=== PATIENT | female | born 1945 | race Two or more races ===

== ENCOUNTER 2019-01-07 19:41 | Emergency (ER) | payer MEDICARE, MEDICAID ==
[~2019-01-07] VITALS: Ht 170.2 cm; Wt 75.0 kg
[2019-01-07] MEDS ORDERED: LIDOCAINE 1%/EPI 1:100,000 10 ML VIAL IJ ONE (20:15)
[2019-01-07 20:53] LABS: EOSINOPHILS % 1.4 % (0.0-5.0); HEMATOCRIT. 39.7 % (36.0-48.0); HEMOGLOBIN. 13.3 g/dL (12.0-16.0); LYMPHOCYTES % 31.2 % (20.0-50.0); MEAN CORPUSCULAR HEMOGLOBIN 31.3 pg (28.0-32.0); MEAN CORPUSCULAR VOLUME 93.6 fL (81.0-99.0); NEUTROPHILS % 57.4 % (40.0-76.0); PLATELET 188 x1000/uL (130-400); RED BLOOD CELL COUNT 4.24 mill/uL (4.2-5.4)
[2019-01-07 20:57] LABS: CHLORIDE 102 mEq/L (98-107)
[2019-01-07 20:59] LABS: PROTHROMBIN TIME 10.5 sec (9.1-11.1)
[2019-01-07] MEDS ORDERED: ACETAMINOPHEN 325MG TABLET PO ONE (22:45)
[2019-01-07] MEDS ORDERED: TRANEXAMIC ACID 1,000 MG/10 ML IV ONE (23:00)
[2019-01-08] MEDS ORDERED: DIPHENHYDRAMINE 50MG/ML VIAL IV PRN (02:30)
[2019-01-08] MEDS ORDERED: HYDROCODONE/ACETAMINOPHEN 5/325MG TABLET PO PRN (02:30)
[2019-01-08] MEDS ORDERED: ONDANSETRON HCL 4MG/2ML INJ IV PRN (02:30)
[2019-01-08] MEDS ORDERED: DOCUSATE SODIUM 100MG CAPSULE PO PRN (02:30)
[2019-01-08] MEDS ORDERED: ACETAMINOPHEN 325MG TABLET PO PRN (02:30)
[2019-01-08] MEDS ORDERED: CLONIDINE 0.1MG TABLET PO PRN (02:30)
[2019-01-08] MEDS ORDERED: GUAIFENESIN 200MG/10ML SUGAR FREE UDC PO PRN (02:30)
[2019-01-08 07:44] VITALS: BP 128/52
[2019-01-08] MEDS ORDERED: AMLODIPINE 10MG TABLET PO SCH (09:00)
== END 2019-01-08 09:44 | disposition left against medical advice (07) ==
LOC: ER 19:41 → SUPCPDRO 01-08 05:36 → ENRESERV 01-08 08:57 → CANRESERV 01-08 08:57 → ER 01-08 09:44 → CANBEDREQ 01-08 12:56
DX: T82.838A Hemorrhage due to vascular prosthetic devices, implants and grafts, initial encounter (principal); I95.9 Hypotension, unspecified; Y84.8 Other medical procedures as the cause of abnormal reaction of the patient, or of later complication, without mention of misadventure at the time of the procedure; Y92.89 Other specified places as the place of occurrence of the external cause; I12.0 Hypertensive chronic kidney disease with stage 5 chronic kidney disease or end stage renal disease; N18.6 End stage renal disease; Z99.2 Dependence on renal dialysis; I25.10 Atherosclerotic heart disease of native coronary artery without angina pectoris; I25.2 Old myocardial infarction; D68.59 Other primary thrombophilia; F17.210 Nicotine dependence, cigarettes, uncomplicated
CPT/HCPCS: 36415; 80053; 85025; 85610; 86850; 86900; 86901; 93970; 96374; 99291; J3490

== ENCOUNTER → 2021-07-06 | Day surgery (SDC) | payer MEDICARE, MEDICAID ==
[~2021-07-06] VITALS: Ht 162.6 cm; Wt 72.8 kg
[~2021-07-06] MED LIST: BACITRACIN 15GM TUBE TOP ONE; BUPIVACAINE HCL/PF 0.5% (5MG/ML) 10ML ONE; CEFAZOLIN SODIUM 1000MG/VIAL ONE; HEPARIN 1000 UNITS/ML 10ML ONE; HEPARIN SODIUM 1,000 UNIT/1ML VIAL IV NR; HEPARIN SODIUM 1,000 UNIT/1ML VIAL IV ONE; LACTATED RINGERS 1,000 ML IV SCH; LIDOCAINE HCL 1% 20ML VIAL (Pyxis) INJ ONE; MIDAZOLAM HCL 2 MG/2 ML VIAL ONE; POLYMYXIN B SULFATE 500000 UNITS/VIAL ONE; PROPOFOL 200MG/20ML VIAL IV ONE; ROPIVACAINE HCL 10MG/ML 20 ML VIAL EPI ONE; SUCCINYLCHOLINE CHLORIDE 200MG/10ML IV ONE; THROMBIN (BOVINE) 5000 UNITS/VIAL TOP ONE
[2021-07-06 10:00] LABS: BASOPHILS % 0.9 % (0.0-2.0); EOSINOPHILS % 0.6 % (0.0-5.0); HEMATOCRIT. 30.3 % (36.0-48.0); HEMOGLOBIN. 10.4 g/dL (12.0-16.0); LYMPHOCYTES % 17.9 % (20.0-50.0); MEAN CORPUSCULAR HEMOGLOBIN 33.3 pg (28.0-32.0); MEAN CORPUSCULAR VOLUME 97.1 fL (81.0-99.0); MEAN PLATELET VOLUME 8.2 fl (7.4-10.4); MONOCYTES % 9.9 % (2.0-8.0); NEUTROPHILS % 70.7 % (40.0-76.0); PLATELET 172 x1000/uL (130-400); RED BLOOD CELL COUNT 3.12 mill/uL (4.2-5.4); RED CELL DISTRIBUTION WIDTH 15.3 % (11.6-14.6)
[2021-07-06 10:10] LABS: PARTIAL THROMBOPLASTIN TIME 29.5 sec (23.4-31.0); PROTHROMBIN TIME 10.9 sec (9.6-11.0)
== END | disposition home or self-care (01) ==
LOC: OR 09:08
PROVIDERS: ATTEND Surgery Vascular Surgery
DX: N18.6 End stage renal disease (principal); I25.10 Atherosclerotic heart disease of native coronary artery without angina pectoris; Z87.891 Personal history of nicotine dependence; Z79.899 Other long term (current) drug therapy; Z98.890 Other specified postprocedural states; Z20.822 Contact with and (suspected) exposure to COVID-19
CPT/HCPCS: 36415; 36830; 64418; 80048; 82962; 85025; 85610; 85730; 87426; 93005; C1768; J0330; J0690; J1644; J2250; J2704; J2795; J3490; A4565